=== PATIENT | female | born 1955 | race Caucasian/White ===

== ENCOUNTER 2016-12-04 10:40 | Day surgery (SDC) | payer BC ==
[~2016-12-04 10:40] MED LIST: Lactated Ringers 1,000 ML IV SCH; Sodium Chloride 0.9% 10 ML Syringe FLUSH PRN
[2016-12-04] MEDS ORDERED: Midazolam 1 MG/ML 2 ML SDV ONE ×2 (10:54→10:59)
[2016-12-04] MEDS ORDERED: fentaNYL 100 MCG/2 ML SDV ONE ×2 (10:54→10:59)
[2016-12-04] MEDS ORDERED: Propofol 200 MG/20 ML SDV ONE ×2 (10:54→10:59)
--- NOTE | 2016-12-04 11:01 | PCM.PN ---
- General Info Date of Service: 12/04/16 - Review of Systems Systems Review Comment:: 61-year-old female here for colonoscopy. It is been many years since her last colon exam. She denies any recent change in bowel habits or rectal bleeding. She does have a personal history of breast cancer. I discussed the proposed colonoscopy with the patient. Risks such as but not limited to bleeding and GI injury or reviewed. She appears to understand and agrees to proceed. - Patient Data Vitals - most recent: Last Vital Signs Temp 98.6 F 12/04/16 10:43 Pulse 68 12/04/16 10:43 Resp 20 12/04/16 10:43 BP 116/70 12/04/16 10:43 Pulse Ox 95 12/04/16 10:43 Weight - most recent: 77.111 kg Med Orders - Current: Current Medications Lactated Ringer's (Ringers, Lactated) 1,000 mls @ 125 mls/hr IV ASDIRECTED DHRUV Last Admin: 12/04/16 10:51 Dose: 125 mls/hr Sodium Chloride (Saline Flush) 10 ml FLUSH ASDIRECTED PRN PRN Reason: Keep Vein Open Discontinued Medications Fentanyl (Sublimaze) Confirm Administered Dose 100 mcg .ROUTE .STK-MED ONE Stop: 12/04/16 10:55 Midazolam HCl (Versed 1 Mg/Ml) Confirm Administered Dose 2 mg .ROUTE .STK-MED ONE Stop: 12/04/16 10:55 Propofol (Diprivan 20 Ml) Confirm Administered Dose 200 mg .ROUTE .STK-MED ONE Stop: 12/04/16 10:55 - Problem List Review Problem List Initiated/Reviewed/Updated: Yes - Assessment Assessment:: Colon cancer screening History of breast cancer - Plan Plan:: Colonoscopy
--- NOTE | 2016-12-04 11:41 | PCM.OPNOTE ---
- General Post-Op/Procedure Note Date of Surgery/Procedure: 12/04/16 Operative Procedure(s): Colonoscopy Findings: Normal Colon Pre Op Diagnosis: Colon Cancer Screening with history of breast cancer Post-Op Diagnosis: Normal colon Anesthesia Technique: MAC Primary Surgeon: Loki Ronquillo Pathology: none Output, Urine Amount: 0 EBL in mLs: 0 Complications: None Condition: Good
[2016-12-04 12:04] VITALS: BP 114/72
--- NOTE | 2016-12-04 15:58 | OR ---
Date of Procedure: 12/04/2016 PREOPERATIVE DIAGNOSES: 1. Colon cancer screening. 2. History of breast cancer. POSTOPERATIVE DIAGNOSIS: Normal colon. OPERATION PERFORMED: Colonoscopy. INDICATIONS FOR SURGERY: This 61-year-old female is here for screening colonoscopy. She does have a known personal history of breast cancer. FINDINGS: The patient's colon appears normal. No polyps or evidence of inflammation is seen during the exam. PROCEDURE IN DETAIL: The patient was taken to the operating room. She was given intravenous sedation and with her in the left lateral decubitus position, digital rectal exam was performed showing no rectal masses. The Olympus colonoscope was inserted into the rectum. Retroflex examination of the rectal canal was performed. The scope was then carefully advanced under direct visualization through the entire length of the colon until cecum was reached. This did require hand pressure and careful manipulation, but eventually the cecum was able to be accessed and fully visualized. The appendiceal orifice and ileocecal valve were viewed. After examining the cecum, the scope was slowly withdrawn sequentially re-examining the colonic segments. Once the entire colon and rectum had been fully examined, the scope was removed and the patient was then taken from the operating room in satisfactory condition. ESTIMATED BLOOD LOSS: Zero. COMPLICATIONS: None. PROGNOSIS: Good. MEGAN Ronquillo MD /[id number]
== END 2016-12-04 11:45 | disposition home or self-care (01) ==
LOC: LL.SDS 10:40
PROVIDERS: ATTEND Surgery
DX: Z12.11 Encounter for screening for malignant neoplasm of colon (principal); I10 Essential (primary) hypertension; E78.5 Hyperlipidemia, unspecified; Z88.8 Allergy status to other drugs, medicaments and biological substances; Z79.899 Other long term (current) drug therapy; Z90.710 Acquired absence of both cervix and uterus; Z98.890 Other specified postprocedural states
CPT/HCPCS: 45378; J2250; J2704; J3010; J7120

== ENCOUNTER 2021-10-12 01:35 | Emergency (ER) | payer MEDICARE, OTHER ==
[2021-10-12] MEDS ORDERED: Sodium Chloride 0.9% 10 ML Syringe FLUSH PRN (02:08)
[2021-10-12] MEDS ORDERED: Morphine 2 MG/ML SYRINGE IVPUSH PRN (02:11)
[2021-10-12] MEDS ORDERED: Ondansetron 4 MG/2 ML SDV IVPUSH ONE (02:11)
[2021-10-12] MEDS ORDERED: Sodium Chloride 0.9% 1,000 ML IV SCH ×2 (02:15→03:45)
[2021-10-12 02:42] LABS: ANION GAP 6.7 meq/L (7-15); CHLORIDE,CL 102 mmol/L (98-107); SODIUM,NA 137 mmol/L (136-145)
[2021-10-12] MEDS ORDERED: Iopamidol 612 MG/ML 100 ML Bottle IVPUSH STA (03:07)
[2021-10-12] MEDS ORDERED: Piperacillin/Tazobactam 4.5 GM in Sodium Chloride 0.9% 100 ML IV SCH (03:45)
[2021-10-12 05:44] VITALS: BP 127/65; PULSE 81
== END 2021-10-12 05:28 ==
LOC: LL.ED 01:35
DX: K35.32 Acute appendicitis with perforation, localized peritonitis, and gangrene, without abscess (principal); E78.00 Pure hypercholesterolemia, unspecified; I10 Essential (primary) hypertension; Z88.8 Allergy status to other drugs, medicaments and biological substances; Z20.822 Contact with and (suspected) exposure to COVID-19
CPT/HCPCS: 36415; 74177; 80053; 81001; 83605; 83690; 85025; 86140; 87086; 87186; 87426; 96365; 96375; 99284; 99285-25; J2270; J2405; J2543; J3490; J7030; Q9967

== ENCOUNTER 2022-03-03 15:28 | Emergency (ER) | payer OTHER, MEDICARE ==
[2022-03-03] MEDS ORDERED: Lidocaine 1% 5 ML VIAL INJECT ONE (15:38)
[2022-03-03 15:41] VITALS: BP 145/83; PULSE 71
[2022-03-03] MEDS ORDERED: Bacitracin/Neomycin/Polymyxin B Oint 0.9 GM U/D Packet ONE (15:57)
== END 2022-03-03 16:18 | disposition home or self-care (01) ==
LOC: LL.ED 15:28
DX: S61.412A Laceration without foreign body of left hand, initial encounter (principal); E78.00 Pure hypercholesterolemia, unspecified; I10 Essential (primary) hypertension; Z88.8 Allergy status to other drugs, medicaments and biological substances; W25.XXXA Contact with sharp glass, initial encounter
CPT/HCPCS: 12001; 99282; 99283

== ENCOUNTER 2022-05-09 11:45 | Emergency (ER) | payer MEDICARE, OTHER ==
[2022-05-09 11:51] VITALS: BP 158/91; PULSE 68
[2022-05-09] MEDS: Acetaminophen/HYDROcodone 325-5 MG Tab PO ONE (12:13)
== END 2022-05-09 14:05 | disposition home or self-care (01) ==
LOC: LL.ED 11:45
DX: M53.3 Sacrococcygeal disorders, not elsewhere classified (principal); E78.00 Pure hypercholesterolemia, unspecified; I10 Essential (primary) hypertension; Z88.8 Allergy status to other drugs, medicaments and biological substances
CPT/HCPCS: 72170; 72220; 99283; A9270

== ENCOUNTER 2024-05-25 14:13 | Emergency (ER) | payer MEDICARE ==
[2024-05-25] MEDS ORDERED: Sodium Chloride 0.9% 10 ML Syringe FLUSH PRN (15:10)
[2024-05-25 15:32] LABS: BASOPHILS ABSOLUTE AUTO 0.05 K/uL (0.00-0.20); BASOPHILS PERCENT AUTO 0.7 % (0.0-2.0); EOSINOPHILS ABSOLUTE AUTO 0.06 K/uL (0.00-0.50); EOSINOPHILS PERCENT AUTO 0.8 % (0.0-5.0); HEMATOCRIT 43.7 % (34.0-46.0); IMMATURE GRAN ABSOLUTE AUTO 0.01 10^3/uL (0.00-0.50); IMMATURE GRAN PERCENT AUTO 0.1 % (0.0-5.0); LYMPHOCYTES ABSOLUTE AUTO 1.39 K/uL (0.50-3.50); LYMPHOCYTES PERCENT AUTO 19.3 % (10.0-50.0); MEAN CORPUSCULAR HEMOGLOBIN 29.2 pg (28.2-33.3); MEAN CORPUSCULAR HGB CONC 34.3 g/dL (31.7-36.0); MEAN CORPUSCULAR VOLUME 85.2 fL (84.0-98.0); MONOCYTES ABSOLUTE AUTO 0.52 K/uL (0.00-1.00); MONOCYTES PERCENT AUTO 7.2 % (2.0-14.0); NEUTROPHILS ABSOLUTE AUTO 5.16 K/uL (1.40-7.00); NEUTROPHILS PERCENT AUTO 71.9 % (45.0-80.0); PLATELET COUNT,PLT 248 K/uL (150-350); RED BLOOD CELL COUNT 5.13 M/uL (3.77-5.09); RED CELL DISTRIBUTION WIDTH 11.8 % (11.2-14.1); WHITE BLOOD CELL COUNT,WBC 7.2 K/uL (4.0-10.2)
[2024-05-25] MEDS: Ketorolac 15 MG/ML SDV IVPUSH ONE (15:49)
[2024-05-25] MEDS: Prochlorperazine 10 MG/2 ML SDV IV ONE (15:52)
[2024-05-25] MEDS: diphenhydrAMINE 50 MG/ML SDV IVPUSH ONE (15:55)
[2024-05-25 15:57] LABS: ALANINE AMINOTRANSFERASE,ALT 61 U/L (12-78); ALBUMIN 4.3 g/dL (3.4-5.0); ALKALINE PHOSPHATASE 94 IU/L (46-116); ANION GAP 10.4 meq/L (7-15); ASPARTATE AMNIOTRANSFERASE,AST 23 U/L (15-37); BILIRUBIN TOTAL 0.5 mg/dL (0.2-1.0); BLOOD UREA NITROGEN,BUN 17 mg/dL (7-18); CALCIUM 10.1 mg/dL (8.5-10.1); CARBON DIOXIDE,CO2 28.6 mmol/L (21.0-32.0); CHLORIDE,CL 103 mmol/L (98-107); CREATININE 0.83 mg/dL (0.51-1.17); GLUCOSE RANDOM 135 mg/dL (70-99); MAGNESIUM 2.2 mg/dL (1.8-2.4); POTASSIUM,K 4.1 mmol/L (3.5-5.1); PROTEIN TOTAL,TP 7.9 g/dL (6.4-8.2); SODIUM,NA 142 mmol/L (136-145)
[2024-05-25 15:58] LABS: ESTIMATED GFR 76 mL/min (>=60)
[2024-05-25 16:24] LABS: INR 1.2 (0.9-1.1); PROTHROMBIN TIME 11.5 SEC (9.0-11.1)
[2024-05-25] MEDS: cloNIDine 0.1 MG Tab PO ONE (16:45)
[2024-05-25 17:26] VITALS: BP 108/90; PULSE 74
== END 2024-05-25 17:55 | disposition home or self-care (01) ==
LOC: LL.ED 14:13
DX: G44.209 Tension-type headache, unspecified, not intractable (principal); I10 Essential (primary) hypertension; Z90.710 Acquired absence of both cervix and uterus; Z79.899 Other long term (current) drug therapy; Z88.8 Allergy status to other drugs, medicaments and biological substances; Z88.9 Allergy status to unspecified drugs, medicaments and biological substances
CPT/HCPCS: 36415; 80053; 83735; 85025; 85610; 93005; 93010; 96374; 96375; 99284; 99284-25; A9270-GY; J0780; J1200; J1885